=== PATIENT | male | born 1945 | race Caucasian/White ===

== ENCOUNTER 2017-01-13 09:37 | Day surgery (SDC) | payer OTHER, MEDICARE ==
[2017-01-13 09:44] VITALS: BMI 28.1
--- NOTE | 2017-01-13 11:02 | PDOC ---
History of Present Illness <Ham Harmon - Last Filed: 01/13/17 11:09> - General History Source: Patient Exam Limitations: No Limitations - History of Present Illness Initial Comments: 01/13/17 11:16 Patient is a 70 year old male with significant medical hx of HTN, HLD, CAD s/p 3 vessel CABG(on aspirin and effient), cardiac stent x1, RA, hiatal hernia, GERD and chronic lower back pain who is presenting to the ED with foreign body. Patient states that he was taking his daily medication this morning as he accidentally swallowed one of his pill that is still in the terminal manager. He states that he tried inducting vomiting but was not successful. He states that he feels the wrapper in the mid throat. Patient reports pain when swallowing but denies difficulty, SOB or trouble holding saliva. He states that his last effient dose was yesterday. PCP: Tashi Dutta MD ENT - Dr. Pedro MARTE <Bhavani Aranda - Last Filed: 01/13/17 11:29> - General Chief Complaint: Foreign Body (FB) Stated Complaint: FOREIGN BODY/swallowed pill wrapper Time Seen by Provider: 01/13/17 10:13 Past History - Past Medical History Cardiac Disorders: Yes ([place]) HTN: Yes - Surgical History Cardiac Surgery: Yes (BYPASS 1989, CARD STENT) - Psycho/Social/Smoking Cessation Hx Anxiety: No Suicidal Ideation: No Smoking Status: No Smoking History: Former smoker Have you smoked in the past 12 months: No Number of Cigarettes Smoked Daily: 0 If you are a former smoker, when did you quit?: 1977 Information on smoking cessation initiated: No Hx Alcohol Use: No Drug/Substance Use Hx: No Substance Use Type: None <Ham Harmon - Last Filed: 01/13/17 11:09> <Bhavani Aranda - Last Filed: 01/13/17 11:29> - Past Medical History Allergies/Adverse Reactions: Allergies Allergy/AdvReac Type Severity Reaction Status Date / Time No Known Allergies Allergy Verified 01/13/17 09:44 Home Medications: Ambulatory Orders Aspirin Coated [Ecotrin -] 80 mg PO DAILY 01/01/13 Atorvastatin Ca [Lipitor] 20 mg PO HS 01/01/13 Hydroxychloroquine So4 [Plaquenil -] 200 mg PO BID 01/01/13 Lisinopril [Prinivil -] 20 mg PO DAILY 01/01/13 Metoprolol Succinate [Toprol XL -] 100 mg PO BID 01/01/13 Gabapentin [Neurontin -] 600 mg PO HS 12/27/15 Multivitamins [Multivit ([facility])] 1 tab PO DAILY 12/27/15 Prasugrel Hydrochloride [Effient -] 5 mg PO ASDIR 12/27/15 Furosemide [Lasix -] 40 mg PO HS 01/13/17 Spironolactone 25 mg PO DAILY 01/13/17 Sulfasalazine [Sulfazine] 1,500 mg PO BID 01/13/17 Review of Systems - Review of Systems Constitutional: No: Chills, Fever HEENTM: Yes: Difficulty Swallowing. No: Throat Swelling Respiratory: No: Shortness of Breath Cardiac (ROS): No: Syncope ABD/GI: No: Vomiting <Ham Harmon - Last Filed: 01/13/17 11:09> *Physical Exam - Vital Signs Last Vital Signs Temp Pulse Resp BP Pulse Ox 97.7 F 62 19 153/70 99 01/13/17 09:41 01/13/17 09:41 01/13/17 09:41 01/13/17 09:41 01/13/17 09:41 <Ham Harmno - Last Filed: 01/13/17 11:09> - Vital Signs Last Vital Signs Temp Pulse Resp BP Pulse Ox 97.7 F 62 19 153/70 99 01/13/17 09:41 01/13/17 09:41 01/13/17 09:41 01/13/17 09:41 01/13/17 09:41 - Physical Exam Comments: 01/13/17 11:16 GENERAL: The patient is awake, alert, and fully oriented, in no acute distress. HEAD: Normal with no signs of trauma. EYES: Pupils equal, round and reactive to light, extraocular movements intact, sclera anicteric, conjunctiva clear with no pallor. ENT: +patent airway, speaking full sentences. Ears normal, nares patent, oropharynx clear without exudates. Moist mucous membranes. NECK: Normal range of motion, supple without lymphadenopathy, JVD, or masses. No stridor. LUNGS: Breath sounds equal, clear to auscultation bilaterally. No wheeze/ crackles. HEART: Regular rate and rhythm, normal S1 and S2 without murmur or rub. ABDOMEN: Soft/nontender/nondistended. BS wnl. No guarding or rebound. No palpable masses. No hepatosplenomegaly. EXTREMITIES: Normal range of motion, no edema. No clubbing or cyanosis. No cords, erythema, or tenderness. NEUROLOGICAL: Cranial nerves II through XII grossly intact. Normal speech, normal gait. PSYCH: Normal mood, normal affect. SKIN: Warm, Dry, normal turgor, no rashes or lesions noted. <Bhavani Aranda - Last Filed: 01/13/17 11:29> ED Treatment Course - RADIOLOGY Radiology Studies Ordered: Category Date Time Status NECK SOFT TISSUE [RAD] Stat Radiology 01/13/17 10:13 Completed <Ham Harmon - Last Filed: 01/13/17 11:09> - RADIOLOGY Radiology Studies Ordered: 01/13/17 11:17 EXAM#: TYPE/EXAM: RESULT: [id number] RAD/NECK SOFT TISSUE Swallow pill cover. Neck soft tissue technique 3 views. - Linear vertically oriented radiopaque density is noted at the level of C3, C4 in the proximal esophagus represents radiopaque pill wrapping. - No evidence of prevertebral soft tissue swelling. - Patent airways. - Extensive disc space narrowing C4-C5 with facet joint arthropathy, minimal degenerative posterior subluxation of C4 on C5. - The predental space is not widened. Sternal wires are noted. The lung apices are clear. Bilateral apical pleural thickening. Reported By: Tavo Jackson MD 01/13/17 1052 <Bhavani Aranda - Last Filed: 01/13/17 11:29> Medical Decision Making - Medical Decision Making 01/13/17 11:09 71y/o M cardiac history p/w foreign body in his throat. Pt accidentally swallowed his vitamin b pill in the wrapper. Feels sharp discomfort around his cricoid cartilage, painful swallowing but no difficulty swallowing or breathing/speaking. takes asa daily (took dose this AM), takes effient MWF, last dose yesterday. h/o dyspepsia/GERD VSS airway patent, speaking full sentences, no stridor no visualized foreign body in pharynx lungs clear stat soft tissue neck xray performed showing radioopaque FB in the proximal esophagus. GI consulted and case d/w Dr. Bourne, plan for endo suite for removal. Will check pre-op labs given on asa/effient <Ham Harmon - Last Filed: 01/13/17 11:09> - Medical Decision Making 01/13/17 11:29 A call was placed to Dr. Blount at 10:50 AM A call received from Dr. Blount at 10:59 AM <Bhavani Aranda - Last Filed: 01/13/17 11:29> *DC/Admit/Observation/Transfer - Discharge Dispostion Admit: Yes <Ham Harmon - Last Filed: 01/13/17 11:09> - Attestations Scribe Attestion: 01/13/17 11:18 Documentation prepared by BLADE Vera, acting as medical economics consultant for Ham Harmon MD. <Bhavani Aranda - Last Filed: 01/13/17 11:29> Diagnosis at time of Disposition: Foreign body in esophagus Qualifiers: Encounter type: initial encounter Qualified Code(s): T18.108A - Unspecified foreign body in esophagus causing other injury, initial encounter - Discharge Dispostion Condition at time of disposition: Stable - Referrals Referrals: Tashi Dutta MD [Primary Care Provider] -
[2017-01-13 12:02] LABS: BASOPHIL 2.2 % (0-2.0); MCH 32.9 pg (25.7-33.7); MCHC 32.1 g/dl (32.0-35.9); MEAN CELL VOLUME 102.5 fl (80-96); MEAN PLT VOLUME 8.8 fl (7.5-11.1); NEUTROPHILS 56.8 % (42.8-82.8); PLATELET COUNT 146 K/MM3 (134-434); RDW 13.4 % (11.9-15.9); WHITE BLOOD COUNT 7.4 K/mm3 (4.0-10.0)
[2017-01-13 12:26] LABS: INR 1.05 (0.82-1.09); PROTHROMBIN TIME (PATIENT) 11.6 SEC (9.98-11.88)
[2017-01-13 12:28] LABS: ACTIVATED PTT 31.4 SECONDS (26.9-34.4)
[2017-01-13 13:18] VITALS: TEMP 97.8
[2017-01-13 13:25] LABS: GLUCOSE,RANDOM 101 mg/dL (74-106)
[2017-01-13 13:29] LABS: ANION GAP 5 (8-16); CO2 25 mmol/L (21-32); CREATININE 1.6 mg/dL (0.7-1.3)
[2017-01-13 13:30] LABS: ALBUMIN 3.3 g/dl (3.4-5.0); ALK PHOS 101 U/L (45-117); BILIRUBIN,TOTAL 0.3 mg/dL (0.2-1.0); SGOT/AST 26 U/L (15-37); SGPT/ALT 24 U/L (12-78); TOT PROT 6.4 g/dl (6.4-8.2)
[2017-01-13 13:38] VITALS: BP 132/65; PULSE 48
--- NOTE | 2017-01-13 19:12 | CON.GI ---
Consult Consult Specialty:: GASTROENTEROLOGY - History of Present Illness Chief Complaint: Swallow pill wrapper History of Present Illness: 71-year-old male who complains of foreign body in the esophagus neck after accidentally ingesting a foil wrap pill that he thought was his vitamin. He was seen in the emergency room where an x-ray of his neck was performed and a radiopaque linear opacity was seen in the upper esophagus. Patient is able to handle secretions and able to swallow water however he has a sensation of something stuck in the back of his throat. He was examined by the ER physician. There is no bleeding no cough no shortness of breath. 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 MANAGER: No: Alzheimer's, CVA, Dementia, Migraine, Multiple Sclerosis, Peripheral Neuropathy, Parkinson's, Seizure, Syncope, TIA, Vertigo, Other Cardio/Vascular: Yes: Other ( Calcium deposits coronary artery disease on Effient) Pulmonary: No: Asthma, Bronchitis, Cancer, COPD, O2 Dependent, Pneumonia, Previously Intubated, Pulmonary Embolus, Pulmonary Fibrosis, Sleep Apnea, Other Gastrointestinal: No: Ascites, Cancer, Constipation, Crohn's Disease, Diverticulitis, Diverticulosis, Esophageal Varices, Gastritis, GERD, GI Bleed, Hemorrhoids, Hiatal Hernia, Inflamatory Bowel Disease, Irritable Bowel Disease, Pancreatitis, Peptic Ulcer Disease, Ulcerative Colitis, Other Hepatobiliary: No: Cirrhosis, Cholelithiasis, Cholecystitis, Choledocholithiasis , Hepatitis A, Hepatitis B, Hepatitis C, Other Renal/: No: Renal Failure, Renal Inusuff, BPH, Cancer, Hematuria, Hemodialysis , Neurogenic Bladder, Renal Calculi, UTI, Other Heme/Onc: No: Anemia, B12 Deficiency, Bleeding Disorder, Cancer, Current Chemotherapy, Current Radiation Therapy, Hemochromatosis, Hypercoaguable State, Myeloproliferative Synd, Sickle Cell Disease, Sickle Cell Trait, Thrombocytopenia, Other Infectious Disease: No: AIDS, C-Diff, Herpes Zoster, HIV, MRSA, STD's, Tuberculosis, VREF, Other Musculoskeletal: No: Bursitis, Chronic low back pain, Hemiparesis, Hemiplegia, Osteoarthritis, Paraplegia, Other Rheumatology: No: Fibromyalgia, Gout, Lupus, Rheumatoid Arthritis, Sarcoidosis, Vasculitis, Other ENT: No: Allergic Rhinitis, Sinusitis, Other Endocrine: No: Port[place]'s Disease, [place]'s Disease, Diabetes Insipidus, Diabetes Mellitus, Hyperparathyroidism, Hyperthyroidism, Hypothyroidism, Osteopenia, SIADH, Other Additional Medical History: 1. RHEUMATOID ARTHRITIS (DIFFUSE SYMMETRICAL). 2. CELIAC DISEASE. 3. H/O DERMATITIS HERPETIFORMIS. 4. CAD S/P-LAD STENT RESTENOSIS FOLLOWED BY CABG. 5. HTN. 6. HLD. 7. SEVERE GERD. 8. LUNG GRANULOMAS. 9. 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 10. FORMER SMOKER. 11. THYROID NODULE S/P PARTIAL THYROIDECTOMY. 12. B/L CATARACT SURGERIES WITH LENS IMPLANTS. 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 14. 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 History of Recent Travel: No Home Medications - Allergies Allergies/Adverse Reactions: Allergies Allergy/AdvReac Type Severity Reaction Status Date / Time No Known Allergies Allergy Verified 01/13/17 09:44 - Home Medications Home Medications: Ambulatory Orders Aspirin Coated [Ecotrin -] 80 mg PO DAILY 01/01/13 Atorvastatin Ca [Lipitor] 20 mg PO HS 01/01/13 Hydroxychloroquine So4 [Plaquenil -] 200 mg PO BID 01/01/13 Lisinopril [Prinivil -] 20 mg PO DAILY 01/01/13 Metoprolol Succinate [Toprol XL -] 100 mg PO BID 01/01/13 Gabapentin [Neurontin -] 600 mg PO HS 12/27/15 Multivitamins [Multivit ([facility] Formul[facility])] 1 tab PO DAILY 12/27/15 Prasugrel Hydrochloride [Effient -] 5 mg PO ASDIR 12/27/15 Furosemide [Lasix -] 40 mg PO HS 01/13/17 Spironolactone 25 mg PO DAILY 01/13/17 Sulfasalazine [Sulfazine] 1,500 mg PO BID 01/13/17 Family Disease History - Family Disease History Family History: Unremarkable Review of Systems - Review of Systems Constitutional: reports: No Symptoms Eyes: reports: No Symptoms HENT: reports: Difficult Swallowing, Throat Pain Neck: reports: No Symptoms Cardiovascular: reports: No Symptoms Respiratory: reports: No Symptoms Gastrointestinal: reports: Other ( as HPI) Genitourinary: reports: No Symptoms Breasts: reports: No Symptoms Reported Musculoskeletal: reports: No Symptoms Integumentary: reports: No Symptoms Neurological: reports: No Symptoms Endocrine: reports: No Symptoms Hematology/Lymphatic: reports: No Symptoms Psychiatric: reports: No Symptoms Physical Exam-GI Vital Signs: Vital Signs Temperature 97.8 F 01/13/17 12:34 Pulse Rate 48 L 01/13/17 13:37 Respiratory Rate 17 01/13/17 13:37 Blood Pressure 132/65 01/13/17 13:37 O2 Sat by Pulse Oximetry (%) 97 01/13/17 13:37 Constitutional: Yes: Well Nourished Eyes: Yes: Conjunctiva Clear HENT: Yes: Atraumatic Neck: Yes: Supple, Trachea Midline Cardiovascular: Yes: Regular Rate and Rhythm Respiratory: Yes: Regular Gastrointestinal Inspection: Yes: WNL ...Auscultate: Yes: Normoactive Bowel Sounds ...Palpate: Yes: Soft Musculoskeletal: Yes: WNL Neurological: Yes: WNL, Alert, Oriented Labs: CBC, BMP 01/13/17 11:46 01/13/17 11:46 INR, PTT INR 1.05 (0.82-1.09) 01/13/17 11:46 Imaging - Results X-ray: Image Reviewed Problem List - Problems (1) Foreign body in esophagus Assessment/Plan: Patient needs requires urgent endoscopy. I discussed the risk and benefits of the procedure and the patient agrees to having the event procedure performed. The risk of the procedure include bleeding perforation need for surgical intervention extra hospital stay which may include intensive care stay. We have called endoscopy unit for emergent endoscopy anesthesia is aware and waiting for the patient. Patient understands that he will need to be intubated to perform the endoscopy. Patient also understands the dose higher risk for bleeding because of his anticoagulation. Please see future endoscopy report for results. Davy Bourne MD Code(s): T18.108A - UNSP FOREIGN BODY IN ESOPHAGUS CAUSING OTH INJURY, INIT Qualifiers: Encounter type: initial encounter Qualified Code(s): T18.108A - Unspecified foreign body in esophagus causing other injury, initial encounter
--- NOTE | 2017-01-14 16:01 | PATH ---
Surgical Pathology Report Patient Name: ADAM BELCHER Med. Rec. #: [id number] /Age/Gender: 1945 (Age: 71) / M Account: [id number] Location: AMBULATORY SURG Taken: 01/13/2017 Received: 01/13/2017 Reported: 01/14/2017 Physicians: Davy Bourne M.D. Specimen(s) Received FOREIGN BODY Clinical History Food impaction Final Diagnosis PHARYNGEAL FOREIGN BODY, REMOVAL: FOREIGN BODY (GROSS EXAM). Electronically Signed Dominic Oconnor M.D. Gross Description Received fresh, labeled with the patient's name and indicated on the requisition to be a foreign body, is a 2.1 x 1.6 x 0.3 cm means metallic pill tab. No soft tissue is present. No sections are submitted, gross only. /01/13/2017 saudi/01/13/2017
== END 2017-01-13 13:40 | disposition home or self-care (01) ==
LOC: JER 09:37 → JERFT 09:37 → JASUSAT 11:14
PROVIDERS: ATTEND Internal Medicine Gastroenterology
PROC: 0DC58ZZ Extirpation of Matter from Esophagus, Via Natural or Artificial Opening Endoscopic (ICD-10-PCS; principal; 2017-01-13 12:00)
DX: T17.298A Other foreign object in pharynx causing other injury, initial encounter (principal); X58.XXXA Exposure to other specified factors, initial encounter; Y93.9 Activity, unspecified; Y92.9 Unspecified place or not applicable; Y99.9 Unspecified external cause status
CPT/HCPCS: 36415; 70360-TC; 80053; 85025; 85610; 85730; 86850; 86900; 86901; 88300-TC; 99284-25

== ENCOUNTER 2017-12-03 16:51 | Observation (INO) | payer OTHER, MEDICARE ==
--- NOTE | 2017-12-03 17:01 | PDOC ---
Rapid Medical Evaluation Time Seen by Provider: 12/03/17 16:57 Medical Evaluation: Allergies Allergy/AdvReac Type Severity Reaction Status Date / Time No Known Allergies Allergy Verified 01/13/17 09:44 I have performed a brief in-person evaluation of this patient. The patient presents with a chief complaint of: Headache, lightheadedness, SOB today. BP went up to 211 today Pertinent physical exam findings: 176/102 BP. I have ordered the following: Ekg, labs, CXR The patient will proceed to the ED for further evaluation. Discharge Disposition - Diagnosis Headache, Hypertension, Lightheaded - Referrals - Patient Instructions - Post Discharge Activity
[2017-12-03 17:42] LABS: BASO % 1.8 % (0-2.0); EOS % 3.9 % (0-4.5); HEMATOCRIT 37.4 % (35.4-49); HEMOGLOBIN 12.4 GM/dL (11.7-16.9); LYMPH % 18.1 % (8-40); MCHC 33.2 g/dl (32.0-35.9); MEAN CELL VOLUME 96.5 fl (80-96); MEAN PLT VOLUME 8.8 fl (7.5-11.1); MONO % 5.5 % (3.8-10.2); NEUT % 70.7 % (42.8-82.8); PLATELET COUNT 196 K/MM3 (134-434); RBC 3.88 M/mm3 (4.00-5.60); RDW 13.8 % (11.9-15.9); WHITE BLOOD COUNT 7.3 K/mm3 (4.0-10.0)
[2017-12-03 18:00] LABS: ALBUMIN 3.9 g/dl (3.4-5.0); ANION GAP 7 (8-16); BLOOD UREA NITROGEN 19 mg/dL (7-18); CALCIUM 9.3 mg/dL (8.5-10.1); CHLORIDE 107 mmol/L (98-107); CO2 28 mmol/L (21-32); CREATININE 1.2 mg/dL (0.7-1.3); GLUCOSE,RANDOM 94 mg/dL (74-106); POTASSIUM 4.2 mmol/L (3.5-5.1); SGOT/AST 29 U/L (15-37); SGPT/ALT 35 U/L (12-78); SODIUM 142 mmol/L (136-145)
[2017-12-03 18:04] LABS: ALK PHOS 87 U/L (45-117); BILIRUBIN,TOTAL 0.4 mg/dL (0.2-1.0); N-TERMINAL BNP 676.26 pg/ml (5-125); TOT PROT 7.1 g/dl (6.4-8.2)
[2017-12-03] MEDS ORDERED: FUROSEMIDE 40 MG/4 ML INJECTABLE VIAL IVPUSH ONE (18:55)
--- NOTE | 2017-12-03 19:28 | PDOC ---
History of Present Illness - General Chief Complaint: Blood Pressure Problem Stated Complaint: BLOOD PRESSURE Time Seen by Provider: 12/03/17 16:57 History Source: Patient Exam Limitations: No Limitations - History of Present Illness Initial Comments: Pt, with PMH of HTN, HLD, CAD with 3 vessel CABG (1998) after inferior STEMI and stent x1 (2013), and spinal stenosis, presents with light-headedness, HTN, and SOB since this morning. The pt states he awoke this morning and felt short of breath and light-headed. He took his vitals at home with his monitor and his BP was 200s/100s and O2 saturation was 88%. He called his PCP and guideman office but they are both on vacation. He is able to sleep flat at night and usually does not awake with SOB, although he does have baseline LE edema and has been coughing up more clear sputum. He states he has been more sedentary over the past few months and feels that he has "put on a lot of weight around his abdomen". He denies syncope, changes to his vision, fevers/chills, nausea/ vomiting, chest pain, abdominal pain, urinary symptoms, diarrhea, or constipation. He has taken 40 mg lasix in the past, but it was stopped due to hypokalemia. He takes aspirin and effient since the cardiac stenting, and he took 325 mg aspirin before he arrived to the ER. He was recently treated by a nuclear test technician for a hematoma removal in his R thigh. He believes they have done a RLE doppler on that extremity before, and they had prescribed chlorthiadone for lower extremity edema. 12/03/17 22:19 Past History - Travel Traveled outside of the country in the last 30 days: No Close contact w/someone who was outside of country & ill: No - Past Medical History Allergies/Adverse Reactions: Allergies Allergy/AdvReac Type Severity Reaction Status Date / Time No Known Allergies Allergy Verified 12/03/17 16:58 Home Medications: Ambulatory Orders Amlodipine Besylate [Norvasc -] 5 mg PO DAILY 12/03/17 Aspirin 81 mg PO DAILY 12/03/17 Atorvastatin Ca [Lipitor] 20 mg PO HS 12/03/17 Chlorthalidone 25 mg PO ASDIR 12/03/17 Folic Acid 1 mg PO DAILY 12/03/17 Gabapentin [Neurontin] 300 mg PO TID 12/03/17 Hydroxychloroquine Sulfate [Plaquenil] 200 mg PO BID 12/03/17 Metoprolol Tartrate [Lopressor] 100 mg PO BID 12/03/17 Oxycodone HCl 10 mg PO PRN 12/03/17 Prasugrel HCl [Effient] 5 mg PO ASDIR 12/03/17 Sulfasalazine [Azulfidine] 1,500 mg PO BID 12/03/17 Cancer: No Cardiac Disorders: Yes (OR) Hx Myocardial Infarction: Yes COPD: No DVT: Yes (MELISSA, 2013) Diabetes: No Dialysis: No HTN: Yes Hypercholesterolemia: Yes Liver Disease: No - Surgical History Cardiac Surgery: Yes (BYPASS 1988, CARD STENT) - Immunization History Immunization Up to Date: Yes - Suicide/Smoking/Psychosocial Hx Smoking Status: No Smoking History: Former smoker Have you smoked in the past 12 months: No Number of Cigarettes Smoked Daily: 0 If you are a former smoker, when did you quit?: 1977 Information on smoking cessation initiated: No Hx Alcohol Use: No Drug/Substance Use Hx: No Substance Use Type: None Review of Systems - Review of Systems Able to Perform ROS?: Yes Is the patient limited Korean proficient: No Constitutional: No: Chills, Diaphoresis, Fever, Loss of Appetite, Weight Stable (gaining weight, has been more sedentary and feels more abdominal distension) HEENTM: No: Blurred Vision, Recent change in vision, Double Vision Respiratory: Yes: Shortness of Breath, SOB with Exertion, SOB at Rest, Wheezing (more wheezing at night ), Productive cough (increased clear sputum production) . No: Symptoms reported, Cough, Orthopnea Cardiac (ROS): Yes: Edema, Irregular Heart Rate (felt like heart was racing ), Lightheadedness, Palpitations. No: Chest Pain, Syncope, Chest Tightness ABD/GI: Yes: Abdominal Distended. No: Constipated, Diarrhea, Difficulty Swallowing, Nausea, Poor Appetite, Poor Fluid Intake, Vomiting, Indigestion : No: Burning, Dysuria, Frequency, Hematuria, Urgency Musculoskeletal: No: Back Pain, Joint Pain, Muscle Weakness Integumentary: No: Change in Color, Rash, Sweating Neurological: No: Headache, Numbness, Paresthesia, Seizure, Weakness, Unsteady Gait, Ataxia, Dizziness Psychiatric: No: Stressors, Sleep Pattern Change, Change in Appetite Endocrine: No: Excessive Sweating, Increased Urine, Change in Weight Hematologic/Lymphatic: Yes: Blood Clots (past RUE DVT). No: Anemia, Easy Bleeding, Easy Bruising All Other Systems: Reviewed and Negative *Physical Exam - Vital Signs Last Vital Signs Temp Pulse Resp BP Pulse Ox 98.2 F 86 16 176/102 96 12/03/17 16:59 12/03/17 16:59 12/03/17 16:59 12/03/17 16:59 12/03/17 16:59 - Physical Exam General Appearance: Yes: Nourished, Appropriately Dressed. No: Apparent Distress (Pt stable in department, no current SOB. HTN (170s/90s), sat 96-98%. Pt able to ambulate to stretcher.) HEENT: positive: EOMI, EVELIA, Normal ENT Inspection, Normal Voice, Symmetrical, Pharynx Normal, Hearing Grossly Normal. negative: Scleral Icterus (R), Scleral Icterus (L), Tonsillar Exudate, Tonsillar Erythema Neck: positive: Trachea midline, Normal Thyroid, Supple. negative: Tender, Rigid, Lymphadenopathy (R), Lymphadenopathy (L) Respiratory/Chest: positive: Decreased Breath Sounds (R anterior and posterior mendoza). negative: Chest Tender, Lungs Clear, Normal Breath Sounds, Respiratory Distress, Accessory Muscle Use, Crackles, Rales Cardiovascular: positive: Regular Rhythm, Regular Rate, S1, S2, Edema (pitting edema up to mid jackman, RLE>LLE). negative: JVD, Murmur, Tachycardia Vascular Pulses: Carotid (R): 4+, Carotid (L): 4+ Gastrointestinal/Abdominal: positive: Normal Bowel Sounds, Flat, Soft. negative : Tender, Organomegaly, Pulsatile Mass, Guarding, Rebound, Tenderness Rectal Exam: positive: deferred Lymphatic: negative: Adenopathy, Tenderness Musculoskeletal: positive: Normal Inspection. negative: CVA Tenderness, Decreased Range of Motion, Vertebral Tenderness Extremity: positive: Normal Capillary Refill, Normal Range of Motion, Pelvis Stable, Pedal Edema (pitting edema with keratosis. Recent incision site over R thigh from hematoma removal. ), Swelling. negative: Normal Inspection, Tender, Calf Tenderness, Inflammation Integumentary: positive: Normal Color, Dry, Warm, Swelling (lower extremity edema). negative: Cyanotic, Rash Neurologic: positive: chief investigator II-XII NML intact, Fully Oriented, Alert, Normal Mood/ Affect, Normal Response, Motor Strength 5/5 Heart Score/ECG Review - History History: Moderately suspicious (SOB, no chest pain. Extensive cardiac history with CABG and stent. On aspirin and effient.) - Electrocardiogram EKG: Normal (Similar to prior ECG (old inferior OR)) - Age Age: >/= 65 - Risk Factors Risk Factors Heart Score: Yes Hx Hypercholesterolemia, Yes Hx Hypertension Based on the list above the patient has:: 1-2 risk factors - Troponin Troponin: </= normal limit - Score Heart Score - Total: 4 - ECG Intrepretation Rhythm: Regular Rhythm - [place]: Normal - P and NV Prominent R with upright T in V1 (true posterior OR): No Delta Wave(s) Present: No WPW: No - QRS Poor R Wave Progression: No Q Wave Present: No - ST and T Early Repolarization: No Non Specific ST-T Wave changes: No Flattened T Waves: No Prolonged Q-T Interval: No - ECG Impressions Normal ECG: Yes Non-specific ST Elevation: No Ischemic Changes: No (old inferior OR, no acute changes compared to prior) Bradycardia: No Torsades die[place] Pointes: No WPW: No ED Treatment Course - LABORATORY CBC & Chemistry Diagram: 12/03/17 17:17 12/03/17 17:17 - ADDITIONAL ORDERS Additional order review: Laboratory Results 12/03/17 17:17 Sodium 142 Potassium 4.2 Chloride 107 Carbon Dioxide 28 Anion Gap 7 L BUN 19 H Creatinine 1.2 Creat Clearance w eGFR 59.18 Random Glucose 94 Calcium 9.3 Total Bilirubin 0.4 AST 29 ALT 35 D Alkaline Phosphatase 87 Creatine Kinase 182 Creatine Kinase Index 1.3 CK-MB (CK-2) 2.43 Troponin I < 0.02 B-Natriuretic Peptide 676.26 H Total Protein 7.1 Albumin 3.9 12/03/17 17:17 RBC 3.88 L MCV 96.5 H MCHC 33.2 RDW 13.8 MPV 8.8 Neutrophils % 70.7 D Lymphocytes % 18.1 Monocytes % 5.5 Eosinophils % 3.9 Basophils % 1.8 - RADIOLOGY Radiology Studies Ordered: Category Date Time Status DUPLEX VASCUL US-1 LEG [US] Stat Ultrasound 12/03/17 18:59 Ordered Medical Decision Making - Medical Decision Making (entered later) pt was seen at bedside. Also seen by Dr. Mendiola. Pt presenting with SOB and HTN at home (200s/100s, sat 88%). Pt stable in department (170s/90s, sat 96-98% pt baseline). Calling guideman office as pt was taken off Lasix previously due to hypokalemia. Pt has RLE edema > LLE edema and decreased breath sounds on R side anterior and posterior. Pt took 325 mg Terry aspirin before arriving. ECG looked similar to prior (old inferior stemi). Considering CHF exacerbation vs PE vs ACS. Spoke with his [facility] office (Dr. Morgan, who was international account manager). Agreed with plan for RLE US and 40 IV Lasix. Suggested adding Mg with K to avoid hypokalemia. Will let admitting team know once he is admitted to tele/obs. Ordering D/dimer and RLE ultrasound to r/o DVT/PE. 12/03/17 19:23 Troponin negative, no elevated WBC. Sending coags and D-dimer. If D-dimer positive will obtain CTA to r/o PE. Pt comfortable at bedside. Taken to US for RLE doppler. Called admitting team and he will be admitted to tele/observation with Dr. Lozano. 12/03/17 20:03 Coags within normal limits. Awaiting results of RLE doppler and D-dimer. Called lab to ask for d-dimer report. Lab will call back. Awaiting admitting team to visit patient. Provided home medications as pt was complaining of pain in his back (spinal stenosis) and peripheral neuropathy. Provided 300 mg gabapentin PO, 10 mg oxycodone PO, and 650 mg Tylenol PO. Asked pt to use urinal or to ask overhead door technician for help if he needs to use the restroom (as we provided both Lasix and oxycodone). Pt refused to use urinal. 12/03/17 22:16 (entered later). Pt resting comfortably after lasix and home medications. Was seen by hospitalist and has since left department. D-dimer (called by lab) was 573, which is within age adjusted limits for pt (< 740). No CTA. 12/04/17 01:27 *DC/Admit/Observation/Transfer Diagnosis at time of Disposition: Shortness of breath Hypertension Qualifiers: Hypertension type: unspecified Qualified Code(s): I10 - Essential (primary) hypertension - Discharge Dispostion Condition at time of disposition: Improved Decision to Admit order: Yes - Referrals - Patient Instructions - Post Discharge Activity
--- NOTE | 2017-12-03 19:54 | PDOC ---
Attending Attestation - Resident Resident Name: Tara Boland - ED Attending Attestation I have performed the following: I have examined & evaluated the patient, The case was reviewed & discussed with the resident, I agree w/resident's findings & plan, Exceptions are as noted - HPI HPI: 12/03/17 23:22 Mr. Frantz Reid is a 72 year old male with past medical history of RA ( diffuse symmetrical), Celiac disease, Dermatitis Herpetiformis, CAD s/p LAD stent restenosis followed by 3 vessel CABG (on aspirin and effient), HTN, HLD, GERD, Lung granulomas, B/l cataract surgeries with lens implants and PVD presents to the emergency department with shortness of breath and elevated blood pressure reading at home. The patient reports he woke up today with shortness of breath accompanied with headache and elevated blood pressure of 170 /90, denies chest pain. The patient reports being compliant with all his medications today. Denies nausea or vomiting. The patient reports he had a cardiac stress test on 11/30/2017, which showed an ejection fraction of 53. Allergies: NKDA. PCP: Tashi Dutta MD ENT - Dr. Vasquez - Physicial Exam PE: 12/03/17 23:22 as documented by resident and agree, vital signs reviewed and wnl - Medical Decision Making 12/03/17 19:53 A portion of this note was documented by scribe services under my direction. I have reviewed the details of the note, within reason, and agree with the documentation with the following case summary and management plan written by me. MDM: Jeanette 72 YOM with h/o HTN, HLD, CAD s/p 3 vessel CABG(on aspirin and effient), cardiac stent x1, RA, hiatal hernia, GERD and chronic lower back pain presenting with shortness of breath, hypoxia to 88% and hypertensive at home today. Vital signs wnl here, SpO2 >95% on RA. CXR with mild pulmonary vascular congestion. Trop negative, EKG with old infarct in inferior lead, no elevations or ST segment or interval derangements. Lytes and CBC wnl. BNP in indeterminate range ~670s, similar to prior. Will diurese lasix 40mg x1. Suspecting new onset CHF, will need further cards obs, tele and workup for symptom given cardiac comorbidities. also plan for Duplex study r/o DVT, D dimer to r/o PE, will age adjust and determine if further imaging is necessary. Spoke with his town marshal office (Dr. Morgan, who was medical collections representative). Agreed with plan for RLE US and 40 IV Lasix. Suggested adding Mg with K to avoid hypokalemia. will admit for tele obs for dyspnea/cp workup, concern for new onset CHF, no echo report in notes and inpatient team will need to obtain recent echo report. EF 53%. Admit to hospitalist for medical management, cards hannah tele obs. 12/03/17 23:22
[2017-12-03 20:20] LABS: URINE APPEARANCE CLEAR; URINE BILIRUBIN NEGATIVE (<2.0 mg/dL); URINE COLOR YELLOW; URINE GLUCOSE (UA) NEGATIVE (NEGATIVE); URINE KETONE NEGATIVE (NEGATIVE); URINE LEUK ESTERASE NEGATIVE (NEGATIVE); URINE NITRITE NEGATIVE (NEGATIVE); URINE PROTEIN NEGATIVE (NEGATIVE); URINE UROBILINOGEN NEGATIVE mg/dL (0.2-1.0)
[2017-12-03 20:54] LABS: INR 1.02 (0.83-1.09); PROTHROMBIN TIME (PATIENT) 11.5 SEC (9.7-13.0)
[2017-12-03] MEDS ORDERED: FUROSEMIDE 40 MG/4 ML INJECTABLE VIAL ONE (21:01)
[2017-12-03] MEDS ORDERED: oxyCODONE HCL 5 MG TABLET PO ONE (21:28)
[2017-12-03] MEDS ORDERED: ACETAMINOPHEN 325 MG TABLET (FP) PO ONE (21:28)
[2017-12-03] MEDS ORDERED: GABAPENTIN 300 MG CAPSULE (FP) PO ONE (21:28)
[2017-12-03] MEDS ORDERED: GABAPENTIN 100 MG CAPSULE (FP) ONE (22:43)
--- NOTE | 2017-12-03 22:53 | HP ---
CHIEF COMPLAINT: elevated BP, lightheaded, headache PCP: Tra HISTORY OF PRESENT ILLNESS: This is a 72 year old male with a past medical history of [place], CAD s/p CABG, stent, HTN, HLD who presented to the ED with elevated BP and lightheadedness and a bandlike pressure across his forehead as well as SOB. He also reports his B/L LE edema is increased from baseling. At home his BP was 211/119 and his ox sat was 88. ER course was notable for: (1) troponin 0.02 (2) BNP 676 (3) Recent Travel: pt denies PAST MEDICAL HISTORY: HTN, HLD, [place] 1997, RA, celiac disease, dermatitis herpetiforms, GERD, lung granulomas PAST SURGICAL HISTORY: cardiac stent 1997, stenosed 3vCABG 1998 stent bypass artery 2013 partial tyhyroidectomy B/L cataract L4-S1 laminectomy and fusion Social History: Smoking: quit 1977 Alcohol: pt denies Drugs: pt denies Family History: mother age 49, "too many benzos" father age 62, [place] pat GF "young" [place] brother with psychiatric problems Allergies No Known Allergies Allergy (Verified 12/03/17 16:58) HOME MEDICATIONS: 3 Medication Instructions Recorded Amlodipine Besylate [Norvasc -] 5 mg PO DAILY 12/03/17 Aspirin 81 mg PO DAILY 12/03/17 Atorvastatin Ca [Lipitor] 20 mg PO HS 12/03/17 Chlorthalidone 25 mg PO ASDIR 12/03/17 Folic Acid 1 mg PO DAILY 12/03/17 Gabapentin [Neurontin] 300 mg PO TID 12/03/17 Hydroxychloroquine Sulfate 200 mg PO BID 12/03/17 [Plaquenil] Metoprolol Tartrate [Lopressor] 100 mg PO BID 12/03/17 Oxycodone HCl 10 mg PO PRN 12/03/17 Prasugrel HCl [Effient] 5 mg PO ASDIR 12/03/17 Sulfasalazine [Azulfidine] 1,500 mg PO BID 12/03/17 REVIEW OF SYSTEMS CONSTITUTIONAL: Absent: fever, chills, diaphoresis, generalized weakness, malaise, loss of appetite, weight change HEENT: Absent: rhinorrhea, nasal congestion, throat pain, throat swelling, difficulty swallowing, mouth swelling, ear pain, eye pain, visual changes CARDIOVASCULAR: Present: lightheadedness, peripheral edema Absent: chest pain, syncope, palpitations, irregular heart rate, RESPIRATORY: Present: shortness of breath Absent: cough, dyspnea with exertion, orthopnea, wheezing, stridor, hemoptysis GASTROINTESTINAL: Absent: abdominal pain, abdominal distension, nausea, vomiting, diarrhea, constipation, melena, hematochezia GENITOURINARY: Absent: dysuria, frequency, urgency, hesitancy, hematuria, flank pain, genital pain MUSCULOSKELETAL: Absent: myalgia, arthralgia, joint swelling, back pain, neck pain SKIN: Absent: rash, itching, pallor HEMATOLOGIC/IMMUNOLOGIC: Absent: easy bleeding, easy bruising, lymphadenopathy, frequent infections ENDOCRINE: Absent: unexplained weight gain, unexplained weight loss, heat intolerance, cold intolerance NEUROLOGIC: Present: headache Absent: focal weakness or paresthesias, dizziness, unsteady gait, seizure, mental status changes, bladder or bowel incontinence PSYCHIATRIC: Absent: anxiety, depression, suicidal or homicidal ideation, hallucinations. PHYSICAL EXAMINATION Vital Signs - 24 hr 3 12/03/17 16:59 Temperature 98.2 F Pulse Rate 86 Respiratory 16 Rate Blood Pressure 176/102 O2 Sat by Pulse 96 Oximetry (%) GENERAL: Awake, alert, and fully oriented, in no acute distress. HEAD: Normal with no signs of trauma. EYES: Pupils equal, round and reactive to light, extraocular movements intact, sclera anicteric, conjunctiva clear. No lid lag. EARS, NOSE, THROAT: Ears normal, nares patent, oropharynx clear without exudates. Moist mucous membranes. NECK: Normal range of motion, supple without lymphadenopathy, JVD, or masses. LUNGS: Breath sounds equal, clear to auscultation bilaterally. No wheezes, and no crackles. No accessory muscle use. HEART: Regular rate and rhythm, normal S1 and S2 without murmur, rub or gallop. ABDOMEN: Soft, nontender, not distended, normoactive bowel sounds, no guarding, no rebound, no masses. No hepatomegaly or splenomegaly. MUSCULOSKELETAL: Normal range of motion at all joints. No bony deformities or tenderness. No CVA tenderness. UPPER EXTREMITIES: 2+ pulses, warm, well-perfused. No cyanosis. No clubbing. No peripheral edema. LOWER EXTREMITIES: 2+ pulses, warm, well-perfused. No calf tenderness. 1+ LLE, 2 + RLE peripheral edema. NEUROLOGICAL: Cranial nerves II-XII intact. Normal speech. Normal gait. PSYCHIATRIC: Cooperative. Good eye contact. Appropriate mood and affect. SKIN: Warm, dry, normal turgor, no rashes or lesions noted, normal capillary refill. Laboratory Results - last 24 hr 3 12/03/17 12/03/17 12/03/17 12/03/17 17:17 17:17 19:41 19:45 WBC 7.3 RBC 3.88 L Hgb 12.4 Hct 37.4 D MCV 96.5 H MCH 32.0 MCHC 33.2 RDW 13.8 Plt Count 196 D MPV 8.8 Absolute Neuts (auto) 5.1 Neutrophils % 70.7 D Lymphocytes % 18.1 Monocytes % 5.5 Eosinophils % 3.9 Basophils % 1.8 Nucleated RBC % 0 PT with INR 11.50 INR 1.02 PTT (Actin FS) 31.0 Sodium 142 Potassium 4.2 Chloride 107 Carbon Dioxide 28 Anion Gap 7 L BUN 19 H Creatinine 1.2 Creat Clearance w eGFR 59.18 Random Glucose 94 Calcium 9.3 Total Bilirubin 0.4 AST 29 ALT 35 D Alkaline Phosphatase 87 Creatine Kinase 182 Creatine Kinase Index 1.3 CK-MB (CK-2) 2.43 Troponin I < 0.02 B-Natriuretic Peptide 676.26 H Total Protein 7.1 Albumin 3.9 Urine Color Yellow Urine Appearance Clear Urine pH 5.0 Ur Specific [place] 1.013 Urine Protein Negative Urine Glucose (UA) Negative Urine Ketones Negative Urine Blood Negative Urine Nitrite Negative Urine Bilirubin Negative Urine Urobilinogen Negative Ur Leukocyte Esterase Negative ECG normal sinus rhythm vent rate 84, QTC 453 minimal voltage criteria for LVH inferior infarct, age undetermined no acute ST/T wave changes Radiology Reports US venous doppler RLE Impression: No DVT is identified involving the right leg. Please see above. Reported By: Jax Luke MD 12/03/17 7669 Chest-portable A single view the chest reveals clear lungs, prominent mediastinum and sternal sutures with clips. An acute chest process is not seen. The bones and soft tissues are intact. Since 12/27/2015, the lungs are better aerated. The bibasilar changes have resolved. Reported By: Galo Candelaria MD 12/03/171958 ASSESSMENT/PLAN: 72yM with PMH HTN, HLD, [place] 1997, RA, celiac disease, dermatitis herpetiforms, GERD, lung granulomas presented to the ED with elevated BP, lightheadedness, sob , headache. SOB/CHF - BNP slightly elevated - troponin 0.02 will cont to trend - admit to tele - received lasix 40mg in ED - echo ordered - cardiology consult Hypertension/CAD - BP improved s/p lasix 40mg in ed - headache now resolved with reduction in bp - cont home meds leg edema/lymphedema - pt reports his edema was diagnosed as lymphedema - no DVT on sono - cont lasix, monitor K, pt reports h/o hypokalemia with lasix in past Hyperlipidemia - cont home meds RA - cont home meds celiac disease - gluten free diet DVT PPX - heparin deferred, anticipated LOS less than 48h FEN - po fluids - bmp in am - gluten free low sodium diet Dispo: pt currently requires further observation. Visit type - Emergency Visit Emergency Visit: Yes ED Registration Date: 12/03/17 Care time: The patient presented to the Emergency Department on the above date and was hospitalized for further evaluation of their emergent condition. - New Patient This patient is new to me today: Yes Date on this admission: 12/03/17 - Critical Care Critical Care patient: No Hospitalist Screening - Colonoscopy Questionnaire Colonoscopy Questionnaire: Colonoscopy Questionnaire - Patient: 50 - 75 years old and never had a screening colonoscopy: No History of colon or rectal polyps, or CA: No History of IBD, Crohn's disease or UC: No History of abdominal radiation therapy as a child: No - Relative: 1 with colon or rectal CA, or polyps at age 60 or younger: Unknown Colon or rectal CA diagnosed at age 45 or younger: Unknown Multiple relatives with colon or rectal CA: Unknown - Outcome: Screening Result: Negative Screen
[2017-12-04 00:20] VITALS: BMI 31.8
[2017-12-04] MEDS: oxyCODONE HCL 5 MG TABLET PO PRN ×2 (05:36→22:08)
[2017-12-04] MEDS: GABAPENTIN 300 MG CAPSULE (FP) PO SCH ×3 (05:36→21:15)
[2017-12-04 06:36] LABS: BASO % 1.8 % (0-2.0); EOS % 4.6 % (0-4.5); HEMATOCRIT 36.9 % (35.4-49); HEMOGLOBIN 12.6 GM/dL (11.7-16.9); LYMPH % 28.8 % (8-40); MCH 32.4 pg (25.7-33.7); MEAN CELL VOLUME 95.1 fl (80-96); MEAN PLT VOLUME 8.6 fl (7.5-11.1); MONO % 9.1 % (3.8-10.2); NEUT % 55.7 % (42.8-82.8); PLATELET COUNT 166 K/MM3 (134-434); RBC 3.88 M/mm3 (4.00-5.60); RDW 13.5 % (11.9-15.9); WHITE BLOOD COUNT 6.7 K/mm3 (4.0-10.0)
[2017-12-04 07:03] LABS: ANION GAP 8 (8-16); BLOOD UREA NITROGEN 18 mg/dL (7-18); CALCIUM 9.8 mg/dL (8.5-10.1); CHLORIDE 101 mmol/L (98-107); CO2 31 mmol/L (21-32); CREATININE 1.2 mg/dL (0.7-1.3); GLUCOSE,RANDOM 95 mg/dL (74-106); MAGNESIUM 1.9 mg/dL (1.8-2.4); POTASSIUM 4.5 mmol/L (3.5-5.1); SODIUM 140 mmol/L (136-145)
[2017-12-04] MEDS ORDERED: PT OWN MED DRAWER 7, Y5N ONE ×3 (09:02→21:05)
[2017-12-04] MEDS: ASPIRIN 81 MG CHEWABLE TABLETS PO SCH (09:43)
[2017-12-04] MEDS: HYDROXYCHLOROQUINE SO4 200 MG TABLET (FP) PO SCH ×2 (09:44→22:07)
[2017-12-04] MEDS: FOLIC ACID 1 MG TABLET (FP) PO SCH (09:44)
[2017-12-04] MEDS: METOPROLOL TARTRATE 50 MG TABLET (FP) PO SCH ×2 (09:45→21:15)
[2017-12-04] MEDS: amLODIPine BESYLATE 5 MG TABLET (FP) PO SCH (09:45)
[2017-12-04] MEDS: sulfaSALAzine 500 MG TABLET PO SCH ×2 (09:45→21:15)
[2017-12-04] MEDS ORDERED: PRASUGREL HCL 5 MG TAB PO SCH (10:00)
[2017-12-04] MEDS ORDERED: CHLORTHALIDONE 25 MG TABLET PO SCH (10:00)
[2017-12-04] MEDS ORDERED: FUROSEMIDE 40 MG/4 ML INJECTABLE VIAL IVPUSH SCH (10:00)
--- NOTE | 2017-12-04 12:20 | CON.CARD ---
Cardiology Consult (text) - Consultation Consultation Note: cc: sob, headache hpi: 72 m hx htn, cad s/p mi/remote cabg/pci 2013, hld, venous insuff/le edema here with elevated bp/sob/headache. Feeling well until last night. He ate [employer] take out and after started to have headache and mild sob. He checked bp at home and sbp 200s so came to ER. Bp elevated in er initially, now better. SOB/headache better now as well. No cp, palps, dizzy loc pnd orthopnea. Chronic le edema about the same. Sees dr adam carreon at [facility] for cardio. pmh: per hpi psh: cabg social: no tob fam: nc ros: per hpi; no nvd fever cough wt loss gib hematuria dysuria muscel pain meds: Home Medications Medication Instructions Recorded Amlodipine Besylate [Norvasc -] 5 mg PO DAILY 12/03/17 Aspirin 81 mg PO DAILY 12/03/17 Atorvastatin Ca [Lipitor] 20 mg PO HS 12/03/17 Chlorthalidone 25 mg PO ASDIR 12/03/17 Folic Acid 1 mg PO DAILY 12/03/17 Gabapentin [Neurontin] 300 mg PO TID 12/03/17 Hydroxychloroquine Sulfate 200 mg PO BID 12/03/17 [Plaquenil] Metoprolol Tartrate [Lopressor] 100 mg PO BID 12/03/17 Oxycodone HCl 10 mg PO PRN 12/03/17 Prasugrel HCl [Effient] 5 mg PO ASDIR 12/03/17 Sulfasalazine [Azulfidine] 1,500 mg PO BID 12/03/17 pe: Vital Signs Period Temp Pulse Resp BP Sys/[place] Pulse Ox Last 24 Hr 97.2 F-98.2 F 81-104 16-18 137-176/66-102 96-98 nad no jvd rrr s1s2 no mrg cta bl nl eff aaox3 trace le edema bl, no c/c abd nt nd pos bs no jaundice diaphoresis pos dp pt no carotid bruits Laboratory Last Values WBC 6.7 K/mm3 (4.0-10.0) 12/04/17 05:30 RBC 3.88 M/mm3 (4.00-5.60) L 12/04/17 05:30 Hgb 12.6 GM/dL (11.7-16.9) 12/04/17 05:30 Hct 36.9 % (35.4-49) 12/04/17 05:30 MCV 95.1 fl (80-96) 12/04/17 05:30 MCH 32.4 pg (25.7-33.7) 12/04/17 05:30 MCHC 34.0 g/dl (32.0-35.9) 12/04/17 05:30 RDW 13.5 % (11.9-15.9) 12/04/17 05:30 Plt Count 166 K/MM3 (134-434) 12/04/17 05:30 MPV 8.6 fl (7.5-11.1) 12/04/17 05:30 Absolute Neuts (auto) 3.7 # 12/04/17 05:30 Neutrophils % 55.7 % (42.8-82.8) D 12/04/17 05:30 Lymphocytes % 28.8 % (8-40) D 12/04/17 05:30 Monocytes % 9.1 % (3.8-10.2) 12/04/17 05:30 Eosinophils % 4.6 % (0-4.5) H 12/04/17 05:30 Basophils % 1.8 % (0-2.0) 12/04/17 05:30 Nucleated RBC % 0 % (0-0) 12/04/17 05:30 PT with INR 11.50 SEC (9.7-13.0) 12/03/17 19:45 INR 1.02 (0.83-1.09) 12/03/17 19:45 PTT (Actin FS) 31.0 SECONDS (25.2-36.5) 12/03/17 19:45 Sodium 140 mmol/L (136-145) 12/04/17 05:30 Potassium 4.5 mmol/L (3.5-5.1) 12/04/17 05:30 Chloride 101 mmol/L (98-107) 12/04/17 05:30 Carbon Dioxide 31 mmol/L (21-32) 12/04/17 05:30 Anion Gap 8 (8-16) 12/04/17 05:30 BUN 18 mg/dL (7-18) 12/04/17 05:30 Creatinine 1.2 mg/dL (0.7-1.3) 12/04/17 05:30 Creat Clearance w eGFR 59.18 (>60) 12/04/17 05:30 Random Glucose 95 mg/dL (74-106) 12/04/17 05:30 Calcium 9.8 mg/dL (8.5-10.1) 12/04/17 05:30 Phosphorus 4.0 mg/dL (2.5-4.9) D 12/04/17 05:30 Magnesium 1.9 mg/dL (1.8-2.4) 12/04/17 05:30 Total Bilirubin 0.4 mg/dL (0.2-1.0) 12/03/17 17:17 AST 29 U/L (15-37) 12/03/17 17:17 ALT 35 U/L (12-78) D 12/03/17 17:17 Alkaline Phosphatase 87 U/L (45-117) 12/03/17 17:17 Creatine Kinase 209 IU/L (39-308) 12/04/17 05:30 Creatine Kinase Index 1.2 % (0.0-5.0) 12/04/17 05:30 CK-MB (CK-2) 2.56 ng/mL (0.5-3.6) 12/04/17 05:30 Troponin I < 0.02 ng/ml (0.00-0.05) 12/04/17 05:30 B-Natriuretic Peptide 676.26 pg/ml (5-125) H 12/03/17 17:17 Total Protein 7.1 g/dl (6.4-8.2) 12/03/17 17:17 Albumin 3.9 g/dl (3.4-5.0) 12/03/17 17:17 Urine Color Yellow 12/03/17 19:41 Urine Appearance Clear 12/03/17 19:41 Urine pH 5.0 (5.0-8.0) 12/03/17 19:41 Ur Specific [place] 1.013 (1.001-1.035) 12/03/17 19:41 Urine Protein Negative (NEGATIVE) 12/03/17 19:41 Urine Glucose (UA) Negative (NEGATIVE) 12/03/17 19:41 Urine Ketones Negative (NEGATIVE) 08/02/18 19:41 Urine Blood Negative (NEGATIVE) 12/03/17 19:41 Urine Nitrite Negative (NEGATIVE) 12/03/17 19:41 Urine Bilirubin Negative (<2.0 mg/dL) 12/03/17 19:41 Urine Urobilinogen Negative mg/dL (0.2-1.0) 12/03/17 19:41 Ur Leukocyte Esterase Negative (NEGATIVE) 12/03/17 19:41 cxr: clear lungs ecg: sr, nl intervals, old inf/lat qs, no st changes tele: sr a/p: 72 m hx htn, cad s/p mi/remote cabg/pci 2013, hld, venous insuff/le edema here with elevated bp/sob/headache. htn, sob: -pt with mild pulm edema in setting of high bp (likely triggered by high salt intake) -bp improved and sob resolved now -echo pending -monitor bp -no signs acs -likely ok for dc tomorrow cad, cabg, pci: -no signs acs -pt reports recent normal nuclear stress test at his cardio earlier this week, will request results -no anginal sxs -cont bb, statin, dapt (no recent pci, but will continue as this is what his outside cardio has him on) hld: -cont statin venous insuff/le edema: -continue chlorthalidone
--- NOTE | 2017-12-04 12:50 | ECHO ---
Name: ADAM BELCHER Exam:Adult Echocardiogram Study Date: 12/04/2017 07:44 AM Age: 72 yrs Reason For Study: SOB Height: 66 in Weight: 197 lb BSA: 2.0 m2 MMode/2D Measurements & Calculations IVSd: 1.3 cm Ao root diam: 2.8 cm LVIDd: 4.1 cm LA dimension: 3.4 cm LVIDs: 2.7 cm LVPWd: 1.2 cm EDV(Teich): 73.8 ml ESV(Teich): 26.6 ml Doppler Measurements & Calculations MV E max vinny: 50.9 cm/sec Med Peak E' Vinny: 6.4 cm/sec MV A max vinny: 79.5 cm/sec Med E/e': 7.9 MV E/A: 0.64 Lat Peak E' Vinny: 8.6 cm/sec MV dec time: 0.15 sec Lat E/e': 5.9 Procedure The study was technically limited with all images being suboptimal in quality. Left Ventricle The left ventricle is normal in size. There is mild concentric left ventricular hypertrophy. Left nguyen tricular systolic function is grossly normal. Septal motion is consistent with post-operative state. There is mild inferior wall hypokinesis. Right Ventricle The right ventricle is normal in size and function. Atria Normal left and right atrial size and function. Mitral Valve There is mild mitral annular calcification. The mitral valve is grossly normal. There is trace mitral regurgitation. Tricuspid Valve The tricuspid valve is not well visualized. There is trace tricuspid regurgitation. There was insuffi cient TR detected to calculate RV systolic pressure. Aortic Valve The aortic valve opens well. The aortic valve is trileaflet. No aortic regurgitation is present. Pulmonic Valve The pulmonic valve is not well visualized. Great Vessels The aortic root is normal size. Pericardium/Pleura There is no pericardial effusion. Interpretation Summary There is no comparison study available. The left ventricle is normal in size. There is mild concentric left ventricular hypertrophy. Left ventricular systolic function is grossly normal. Septal motion is consistent with post-operative state. There is mild inferior wall hypokinesis. There is trace mitral regurgitation. There is trace tricuspid regurgitation. Iron Eaton MD 12/04/2017 12:50 PM
--- NOTE | 2017-12-04 16:52 | PN ---
Progress Note, Physician Chief Complaint: Pt sitting in chair in no acute distress. reports he feels better. no symptoms of chest pain, sob, n/v/d. reports he felt lightheaded/pressure last night at home, bp checked and was in 200s per pt. - Current Medication List Current Medications: Active Medications Amlodipine Besylate (Norvasc -) 5 mg PO DAILY [facility] Last Admin: 12/04/17 09:45 Dose: 5 mg Aspirin (Asa -) 81 mg PO DAILY [facility] Last Admin: 12/04/17 09:43 Dose: 81 mg Atorvastatin Calcium (Lipitor -) 20 mg PO [facility] Chlorthalidone (Hygroton -) 25 mg PO Q2D@1000 [facility] Last Admin: 12/04/17 09:44 Dose: 25 mg Chlorthalidone (Hygroton -) 50 mg PO Q2D@1000 [facility] Folic Acid (Folic Acid -) 1 mg PO DAILY [facility] Last Admin: 12/04/17 09:44 Dose: 1 mg Gabapentin (Neurontin -) 300 mg PO TID [facility] Last Admin: 12/04/17 13:38 Dose: 300 mg Hydroxychloroquine Sulfate (Plaquenil -) 200 mg PO BID [facility] Last Admin: 12/04/17 09:44 Dose: 200 mg Metoprolol Tartrate (Lopressor -) 100 mg PO BID [facility] Last Admin: 12/04/17 09:45 Dose: 100 mg Oxycodone HCl (Roxicodone -) 10 mg PO Q6H PRN PRN Reason: PAIN LEVEL 4 - 6 Last Admin: 12/04/17 05:36 Dose: 10 mg Prasugrel (Effient -) 5 mg PO MoWeFr@1000 [facility] Last Admin: 12/04/17 09:45 Dose: 5 mg Sulfasalazine (Azulfidine -) 1,500 mg PO BID [facility] Last Admin: 12/04/17 09:45 Dose: 1,500 mg - Objective Vital Signs: Vital Signs Temperature 97.8 F 12/04/17 14:00 Pulse Rate 79 12/04/17 14:00 Respiratory Rate 20 12/04/17 16:00 Blood Pressure 144/88 12/04/17 14:00 O2 Sat by Pulse Oximetry (%) 98 12/04/17 16:00 Constitutional: Yes: Well Nourished, No Distress, Calm Cardiovascular: Yes: WNL, Regular Rate and Rhythm. No: Murmur Respiratory: Yes: WNL, Regular, CTA Bilaterally Gastrointestinal: Yes: WNL, Normal Bowel Sounds, Soft. No: Distention, Tenderness Genitourinary: Yes: WNL Extremities: Yes: WNL Edema: Yes Edema: LLE: 1+, RLE: 1+ Neurological: Yes: WNL, Alert, Oriented Psychiatric: Yes: WNL, Alert, Oriented Labs: CBC, BMP 12/04/17 05:30 12/04/17 05:30 INR, PTT INR 1.02 (0.83-1.09) 12/03/17 19:45 Problem List - Problems (1) Hypertension Code(s): I10 - ESSENTIAL (PRIMARY) HYPERTENSION Qualifiers: Hypertension type: unspecified Qualified Code(s): I10 - Essential (primary ) hypertension (2) S/P CABG (coronary artery bypass graft) Code(s): Z95.1 - PRESENCE OF AORTOCORONARY BYPASS GRAFT (3) CAD (coronary artery disease) Code(s): I25.10 - ATHSCL HEART DISEASE OF [place] CORONARY ARTERY W/O ANG PCTRS Qualifiers: [place] vs. transplanted heart: [place] heart Associated angina: without angina (4) Venous insufficiency (chronic) (peripheral) Code(s): I87.2 - VENOUS INSUFFICIENCY (CHRONIC) (PERIPHERAL) Assessment/Plan 1. hypertensive episode w/ lightheadedness/sob/head pressure : suspect acute on chronic htn due to increased salt in diet - bp controlled, asymptomatic -echo pending 2.cad, cabg, pci: -no signs acs, tropx3 neg -recent nuclear stress test with telecommunications sales representative unremarkable -continue current management 3. venous insuff/le edema: - received lasix iv here for le edema, improved - dvt r/out -continue chlorthalidone - pt followed by nephrology/cardiology outpt Dispo: discharge tomorrow, pending echo read
[2017-12-04] MEDS: RANITIDINE HCL 150 MG TABLET (FP) PO SCH (21:15)
[2017-12-04] MEDS ORDERED: ATORVASTATIN CA 20 MG TABLET (FP) PO SCH (22:00)
[2017-12-05] MEDS: GABAPENTIN 300 MG CAPSULE (FP) PO SCH ×2 (06:05→14:07)
--- NOTE | 2017-12-05 09:15 | EKG ---
Test Reason : Blood Pressure : / mmHG Vent. Rate : 084 BPM Atrial Rate : 084 BPM P-R Int : 170 ms QRS Dur : 090 ms QT Int : 384 ms P-R-T Axes : 056 016 048 degrees QTc Int : 453 ms NORMAL SINUS RHYTHM MINIMAL VOLTAGE CRITERIA FOR LVH, MAY BE NORMAL VARIANT INFERIOR INFARCT (CITED ON OR BEFORE 20-OCT-2003) ABNORMAL ECG WHEN COMPARED WITH ECG OF 27-DEC-2015 19:56, VENT. RATE HAS INCREASED BY 33 BPM Confirmed by ANIL TORRES, LISA ([id number]) on 12/05/2017 9:14:48 AM Referred By: Confirmed By:LISA MA MD
[2017-12-05] MEDS ORDERED: CHLORTHALIDONE 25 MG TABLET PO SCH (10:00)
[2017-12-05] MEDS: FOLIC ACID 1 MG TABLET (FP) PO SCH (10:44)
[2017-12-05] MEDS: METOPROLOL TARTRATE 50 MG TABLET (FP) PO SCH (10:44)
[2017-12-05] MEDS: RANITIDINE HCL 150 MG TABLET (FP) PO SCH (10:44)
[2017-12-05] MEDS: ASPIRIN 81 MG CHEWABLE TABLETS PO SCH (10:44)
[2017-12-05] MEDS: amLODIPine BESYLATE 5 MG TABLET (FP) PO SCH (10:44)
[2017-12-05] MEDS: sulfaSALAzine 500 MG TABLET PO SCH (10:45)
[2017-12-05] MEDS: HYDROXYCHLOROQUINE SO4 200 MG TABLET (FP) PO SCH (10:45)
--- NOTE | 2017-12-05 11:43 | PN ---
Progress Note, Physician History of Present Illness: No complaints overnight Tele: NSR at 80s - Current Medication List Current Medications: Active Medications Amlodipine Besylate (Norvasc -) 5 mg PO DAILY [facility] Last Admin: 12/05/17 10:44 Dose: 5 mg Aspirin (Asa -) 81 mg PO DAILY [facility] Last Admin: 12/05/17 10:44 Dose: 81 mg Atorvastatin Calcium (Lipitor -) 20 mg PO HS [facility] Last Admin: 12/04/17 21:15 Dose: 20 mg Chlorthalidone (Hygroton -) 25 mg PO Q2D@1000 [facility] Last Admin: 12/04/17 09:44 Dose: 25 mg Chlorthalidone (Hygroton -) 50 mg PO Q2D@1000 [facility] Last Admin: 12/05/17 10:45 Dose: 50 mg Folic Acid (Folic Acid -) 1 mg PO DAILY [facility] Last Admin: 12/05/17 10:44 Dose: 1 mg Gabapentin (Neurontin -) 300 mg PO TID [facility] Last Admin: 12/05/17 06:05 Dose: 300 mg Hydroxychloroquine Sulfate (Plaquenil -) 200 mg PO BID [facility] Last Admin: 12/05/17 10:45 Dose: 200 mg Metoprolol Tartrate (Lopressor -) 100 mg PO BID [facility] Last Admin: 12/05/17 10:44 Dose: 100 mg Oxycodone HCl (Roxicodone -) 10 mg PO Q6H PRN PRN Reason: PAIN LEVEL 4 - 6 Last Admin: 12/04/17 22:08 Dose: 10 mg Prasugrel (Effient -) 5 mg PO MoWeFr@1000 [facility] Last Admin: 12/04/17 09:45 Dose: 5 mg Ranitidine HCl (Zantac -) 150 mg PO BID [facility] Last Admin: 12/05/17 10:44 Dose: 150 mg Sulfasalazine (Azulfidine -) 1,500 mg PO BID [facility] Last Admin: 12/05/17 10:45 Dose: 1,500 mg - Objective Vital Signs: Vital Signs Temperature 98.5 F 12/05/17 05:00 Pulse Rate 73 12/05/17 05:00 Respiratory Rate 18 12/05/17 05:00 Blood Pressure 142/88 12/05/17 05:00 O2 Sat by Pulse Oximetry (%) 98 12/04/17 22:00 Constitutional: Yes: Well Nourished, No Distress Eyes: Yes: WNL HENT: Yes: WNL Neck: Yes: WNL Cardiovascular: Yes: Regular Rate and Rhythm Respiratory: Yes: CTA Bilaterally Gastrointestinal: Yes: Normal Bowel Sounds Extremities: Yes: WNL Edema: No Labs: CBC, BMP 12/04/17 05:30 12/04/17 05:30 INR, PTT INR 1.02 (0.83-1.09) 12/03/17 19:45 Assessment/Plan a/p: 72 m hx htn, cad s/p mi/remote cabg/pci 2013, hld, venous insuff/le edema here with elevated bp/sob/headache. htn, sob: -pt with mild pulm edema in setting of high bp (likely triggered by high salt intake) -bp improved and sob resolved now -echo reprot reviewed with Normal LV size and grossly normal LV function, mild inferior hypocontractility, trace MR. -BP imp[roved 142/88 now -no signs acs -OK for d/c today on outpatient BP regimen and follow up with Dr. Kenyon in [facility] cad, cabg, pci: -no signs acs -no anginal sxs -cont bb, statin, dapt (no recent pci, but will continue as this is what his outside cardio has him on) -nuclear stress test 11/30/17: inferior scarring. inferoseptal scarring with mild-mod kayleigh-infarct ischemia. -Low risk findings, continue with med rx and outpt cardio f/u. hld: -cont statin venous insuff/le edema: -continue chlorthalidone -RLE duplex with no DVT
[2017-12-05 12:40] VITALS: BP 146/85; PULSE 92; TEMP 98.4
--- NOTE | 2017-12-05 13:50 | DS ---
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 He also reports his B/L LE edema is increased from baseling. 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 [facility], admits to be non complint with salt intake, patiwent gradually inproved, cleared to discharge by cardiology consult Condition: Improved - Instructions Diet, Activity, Other Instructions: Low Salt low cholesterol Please Check BMP on Thursday Referrals: Tashi Dutta MD [Primary Care Provider] - 1 Week Disposition: HOME - Home Medications Comprehensive Discharge Medication List: Ambulatory Orders Amlodipine Besylate [Norvasc -] 5 mg PO DAILY 12/03/17 Aspirin 81 mg PO DAILY 12/03/17 Atorvastatin Ca [Lipitor] 20 mg PO HS 12/03/17 Chlorthalidone 25 mg PO ASDIR 12/03/17 Folic Acid 1 mg PO DAILY 12/03/17 Gabapentin [Neurontin] 300 mg PO TID 12/03/17 Hydroxychloroquine Sulfate [Plaquenil] 200 mg PO BID 12/03/17 Metoprolol Tartrate [Lopressor] 100 mg PO BID 12/03/17 Oxycodone HCl 10 mg PO PRN 12/03/17 Prasugrel HCl [Effient] 5 mg PO ASDIR 12/03/17 Sulfasalazine [Azulfidine -] 1,500 mg PO BID 12/03/17 Lasix 40 mg daily am for 7 days
[2017-12-06] MEDS ORDERED: FUROSEMIDE 40 MG TABLET (FP) PO SCH (10:00)
== END 2017-12-05 15:31 | disposition home or self-care (01) ==
LOC: JER 16:51 → JERBED 20:01 → J4W 23:14
PROVIDERS: ADMIT Internal Medicine; ATTEND Internal Medicine
PROC: 3E033GC Introduction of Other Therapeutic Substance into Peripheral Vein, Percutaneous Approach (ICD-10-PCS; principal; 2017-12-03)
DX: I10 Essential (primary) hypertension (principal); R06.02 Shortness of breath; E78.5 Hyperlipidemia, unspecified; I25.10 Atherosclerotic heart disease of native coronary artery without angina pectoris; I25.2 Old myocardial infarction; M48.00 Spinal stenosis, site unspecified; M06.80 Other specified rheumatoid arthritis, unspecified site; K90.0 Celiac disease; L13.0 Dermatitis herpetiformis; K21.9 Gastro-esophageal reflux disease without esophagitis; I73.9 Peripheral vascular disease, unspecified; R60.0 Localized edema; I87.2 Venous insufficiency (chronic) (peripheral); Z87.891 Personal history of nicotine dependence; Z79.82 Long term (current) use of aspirin; Z95.5 Presence of coronary angioplasty implant and graft; Z95.1 Presence of aortocoronary bypass graft
CPT/HCPCS: 36415; 71045-TC-FY; 80048; 80053; 81003; 82550; 82553; 83735; 83880; 84100; 84484; 85025; 85379; 85610; 85730; 93005; 93010; 93306-TC; 93971-TC; 96374; 96376; 99285-25; G0378

== ENCOUNTER 2023-09-08 13:51 | Observation (INO) | payer OTHER, MEDICARE ==
[2023-09-08 14:32] VITALS: BMI 24.5
[2023-09-08 15:05] LABS: BASO % 2.8 % (0-2.0); EOS % 6.7 % (0-4.5); HEMOGLOBIN 8.9 GM/dL (11.7-16.9); LYMPH % 24.4 % (8-40); MCH 31.6 pg (25.7-33.7); MEAN CELL VOLUME 95.6 fl (80-96); MEAN PLT VOLUME 8.1 fl (7.5-11.1); MONO % 6.6 % (3.8-10.2); NEUT % 59.5 % (42.8-82.8); PLATELET COUNT 144 10^3/uL (134-434); RBC 2.82 M/mm3 (4.00-5.60); RDW 15.8 % (11.9-15.9); WHITE BLOOD COUNT 4.7 K/mm3 (4.0-10.0)
[2023-09-08 15:13] LABS: INR 0.98 (0.83-1.09); PROTHROMBIN TIME (PATIENT) 11.1 SEC (9.7-13.0)
[2023-09-08 15:16] LABS: ACTIVATED PTT 33.7 SECONDS (25.2-36.5)
[2023-09-08] MEDS: SODIUM CHLORIDE 1,000 ML IV SCH (15:19)
[2023-09-08 15:27] LABS: POTASSIUM 4.2 mmol/L (3.5-5.1)
[2023-09-08 15:30] LABS: ALBUMIN 2.9 g/dl (3.4-5.0); CALCIUM 8.4 mg/dL (8.5-10.1)
[2023-09-08 15:31] LABS: BLOOD UREA NITROGEN 13.7 mg/dL (7-18)
[2023-09-08 15:34] LABS: CREATININE 1.2 mg/dL (0.55-1.3)
[2023-09-08 15:35] LABS: BILIRUBIN,TOTAL 0.4 mg/dL (0.2-1)
[2023-09-08 15:40] LABS: EPI CELLS 1 /uL (0-25.1); HYALINE CASTS 0 /uL (0-3.1); PH,URINE 5.5 (5.0-8.0); URINE APPEARANCE CLEAR; URINE BACTERIA 11 /uL (0-1359); URINE BILIRUBIN NEGATIVE (NEGATIVE); URINE COLOR DK YELLOW; URINE GLUCOSE (UA) NEGATIVE (NEGATIVE); URINE KETONE NEGATIVE (NEGATIVE); URINE LEUK ESTERASE NEGATIVE (NEGATIVE); URINE NITRITE NEGATIVE (NEGATIVE); URINE PROTEIN 2+ (NEGATIVE); URINE RBC 3 /uL (0-23.9); URINE UROBILINOGEN 0.2 mg/dL (0.2-1.0); URINE WBC 1 /uL (0-25.8)
[2023-09-08] MEDS: cloNIDine HCL 0.1 MG TABLET PO SCH (21:43)
[2023-09-08] MEDS: METOPROLOL TARTRATE 50 MG TABLET (FP) PO SCH (21:43)
[2023-09-08] MEDS: ATORVASTATIN CA 20 MG TABLET (FP) PO SCH (21:43)
[2023-09-08] MEDS ORDERED: PATIENT'S OWN MEDICATION (NON-FORMULARY) (Clonidine Hcl [Clonidine Hcl] 0.2 MG Tablet) PO SCH (22:00)
[2023-09-09] MEDS: ACETAMINOPHEN 325 MG TABLET (FP) PO ONE (08:08)
[2023-09-09] MEDS: ASPIRIN 81 MG CHEWABLE TABLETS PO SCH (09:45)
[2023-09-09] MEDS: FAMOTIDINE 20 MG TABLET PO SCH (09:45)
[2023-09-09] MEDS: amLODIPine BESYLATE 5 MG TABLET (FP) PO SCH (09:47)
[2023-09-09] MEDS: LOSARTAN POTASSIUM 50 MG TABLET PO SCH (09:48)
[2023-09-09] MEDS: FUROSEMIDE 40 MG TABLET (FP) PO SCH (09:48)
[2023-09-09] MEDS ORDERED: PATIENT'S OWN MEDICATION (NON-FORMULARY) (Losartan Potassium [Cozaar] 100 MG Tablet) PO SCH (10:00)
[2023-09-09] MEDS: PRASUGREL HCL 5 MG TAB PO SCH (11:12)
[2023-09-09] MEDS: amLODIPine BESYLATE 5 MG TABLET (FP) PO ONE (11:44)
[2023-09-09 13:25] VITALS: BP 138/69; PULSE 57; RESP 18; TEMP 97.1
[2023-09-09] MEDS: MECLIZINE HCL 12.5 MG TABLET PO ONE (13:36)
[2023-09-10] MEDS ORDERED: amLODIPine BESYLATE 5 MG TABLET (FP) PO SCH ×2 (10:00)
== END 2023-09-09 16:00 | disposition home health service (06) ==
LOC: JER 13:51 → JERBED 19:10 → J4W 20:40
PROVIDERS: ADMIT Internal Medicine; ATTEND Internal Medicine
PROC: 3E0337Z Introduction of Electrolytic and Water Balance Substance into Peripheral Vein, Percutaneous Approach (ICD-10-PCS; principal; 2023-09-08)
DX: R42 Dizziness and giddiness (principal); G45.0 Vertebro-basilar artery syndrome; I25.10 Atherosclerotic heart disease of native coronary artery without angina pectoris; I10 Essential (primary) hypertension; E78.5 Hyperlipidemia, unspecified; I25.2 Old myocardial infarction; Z95.1 Presence of aortocoronary bypass graft; M06.9 Rheumatoid arthritis, unspecified; D46.9 Myelodysplastic syndrome, unspecified; D64.9 Anemia, unspecified
CPT/HCPCS: 36415; 70450-TC; 70551-TC; 71045-TC-FY; 80053; 80061; 81003; 82550; 83036; 84484; 85025; 85610; 85730; 86850; 86900; 86901; 93005; 93010; 97116-GP; 97161-GP; 99285-25; G0378

== ENCOUNTER 2024-03-24 19:26 | Inpatient (IN) | payer OTHER, MEDICARE ==
[2024-03-24 20:00] VITALS: BMI 24.7
[2024-03-24] MEDS ORDERED: ALBUTEROL SO4 2.5/IPRATROPIUM 0.5 INH SOL 3 ML VIAL.NEB. NEB ONE (20:22)
[2024-03-24 20:23] LABS: VENOUS O2 SATURATION 16.2 % (70-80); VENOUS PH 7.333 (7.310-7.410)
[2024-03-24] MEDS ORDERED: methylPREDNISolone NA SUCC 125 MG/2 ML VIAL ONE (20:23)
[2024-03-24 20:26] LABS: BASO % 1.3 % (0-2.0); EOS % 0.3 % (0-4.5); HEMATOCRIT 37.4 % (35.4-49); HEMOGLOBIN 11.8 GM/dL (11.7-16.9); LYMPH % 22.2 % (8-40); MCH 27.9 pg (25.7-33.7); MCHC 31.5 g/dl (32.0-35.9); MEAN CELL VOLUME 88.7 fl (80-96); MEAN PLT VOLUME 7.3 fl (7.5-11.1); MONO % 8.3 % (3.8-10.2); NEUT % 67.9 % (42.8-82.8); PLATELET COUNT 179 10^3/uL (134-434); RBC 4.21 M/mm3 (4.00-5.60); RDW 21.3 % (11.9-15.9); WHITE BLOOD COUNT 4.3 K/mm3 (4.0-10.0)
[2024-03-24 20:41] LABS: INR 1.28 (0.83-1.09); PROTHROMBIN TIME (PATIENT) 14.4 SEC (9.7-13.0)
[2024-03-24 20:44] LABS: ACTIVATED PTT 46.5 SECONDS (25.2-36.5)
[2024-03-24] MEDS: methylPREDNISolone NA SUCC 125 MG/2 ML VIAL IVPUSH ONE (20:46)
[2024-03-24] MEDS: ALBUTEROL SO4 2.5/IPRATROPIUM 0.5 INH SOL 3 ML VIAL.NEB. NEB SCH (20:46)
[2024-03-24 20:57] LABS: POTASSIUM 4.3 mmol/L (3.5-5.1)
[2024-03-24 21:00] LABS: ALBUMIN 2.4 g/dl (3.4-5.0); BLOOD UREA NITROGEN 25.3 mg/dL (7-18); CALCIUM 8.7 mg/dL (8.5-10.1)
[2024-03-24 21:04] LABS: CREATININE 1.5 mg/dL (0.55-1.3)
[2024-03-24 21:05] LABS: BILIRUBIN,TOTAL 0.4 mg/dL (0.2-1); TOT PROT 5.6 g/dl (6.4-8.2)
[2024-03-24] MEDS ORDERED: REMDESIVIR 200 MG in SODIUM CHLORIDE 250 ML IVPB ONE (21:09)
[2024-03-24] MEDS ORDERED: DEXAMETHASONE SOD PHOSPHATE 10 MG/1 ML VIAL ONE (21:18)
[2024-03-24] MEDS ORDERED: FUROSEMIDE 40 MG/4 ML INJECTABLE VIAL ONE (21:19)
[2024-03-24] MEDS: DEXAMETHASONE SOD PHOSPHATE 10 MG/1 ML VIAL IVPUSH ONE (21:52)
[2024-03-24] MEDS: FUROSEMIDE 40 MG/4 ML INJECTABLE VIAL IVPUSH ONE (21:52)
[2024-03-24 22:21] LABS: ANISOCYTOSIS 1+; MACROCYTOSIS 1+
[2024-03-25] MEDS ORDERED: BENZOCAINE/MENTH/CETYLPYRD CL 1 EACH LOZENGE MM PRN (03:36)
[2024-03-25] MEDS: HEPARIN NA (PORCINE) 5,000 UNITS/ML 1ML VIAL SQ SCH (06:33)
[2024-03-25] MEDS: METOPROLOL TARTRATE 50 MG TABLET (FP) PO ONE (06:34)
[2024-03-25] MEDS: GABAPENTIN 300 MG CAPSULE PO SCH (06:34)
[2024-03-25] MEDS: GABAPENTIN 300 MG CAPSULE PO ONE (06:54)
[2024-03-25 07:14] LABS: BASO % 0.3 % (0-2.0); HEMOGLOBIN 11.9 GM/dL (11.7-16.9); LYMPH % 11.9 % (8-40); MCHC 31.3 g/dl (32.0-35.9); MEAN CELL VOLUME 89.4 fl (80-96); MEAN PLT VOLUME 7.6 fl (7.5-11.1); MONO % 2.7 % (3.8-10.2); NEUT % 85.1 % (42.8-82.8); PLATELET COUNT 197 10^3/uL (134-434); RBC 4.25 M/mm3 (4.00-5.60); RDW 21.3 % (11.9-15.9); WHITE BLOOD COUNT 4.7 K/mm3 (4.0-10.0)
[2024-03-25 07:25] LABS: POTASSIUM 4.6 mmol/L (3.5-5.1)
[2024-03-25 07:38] LABS: CALCIUM 8.6 mg/dL (8.5-10.1)
[2024-03-25 07:39] LABS: ALBUMIN 2.4 g/dl (3.4-5.0)
[2024-03-25 07:42] LABS: CREATININE 1.6 mg/dL (0.55-1.3); PHOSPHOROUS 3.4 mg/dL (2.5-4.9)
[2024-03-25 07:43] LABS: BILIRUBIN,TOTAL 0.4 mg/dL (0.2-1)
[2024-03-25 07:44] LABS: TOT PROT 5.8 g/dl (6.4-8.2)
[2024-03-25] MEDS: cloNIDine HCL 0.1 MG TABLET PO ONE (07:56)
[2024-03-25] MEDS: ATORVASTATIN CA 20 MG TABLET (FP) PO ONE (07:56)
[2024-03-25] MEDS ORDERED: cloNIDine HCL 0.1 MG TABLET PO SCH (10:00)
[2024-03-25] MEDS ORDERED: LOSARTAN POTASSIUM 50 MG TABLET PO SCH (10:00)
[2024-03-25] MEDS: FUROSEMIDE 40 MG TABLET (FP) PO SCH (11:03)
[2024-03-25] MEDS: ASPIRIN COATED 81 MG TABLET.EC PO SCH (11:03)
[2024-03-25] MEDS: PRASUGREL HCL 5 MG TAB PO SCH (11:03)
[2024-03-25] MEDS: MUPIROCIN 2% TOPICAL OINTMENT 22 GM TUBE TP SCH (11:03)
[2024-03-25] MEDS: REMDESIVIR 200 MG in SODIUM CHLORIDE 250 ML IVPB ONE (11:04)
[2024-03-25] MEDS: METOPROLOL TARTRATE 50 MG TABLET (FP) PO SCH (11:04)
[2024-03-25] MEDS: amLODIPine BESYLATE 5 MG TABLET (FP) PO SCH (11:04)
[2024-03-25] MEDS: cloNIDine HCL 0.1 MG TABLET PO SCH (11:04)
[2024-03-25] MEDS: LEFLUNOMIDE 10 MG TABLET PO SCH (12:44)
[2024-03-25] MEDS: ATORVASTATIN CA 20 MG TABLET (FP) PO SCH (21:53)
[2024-03-25] MEDS: FAMOTIDINE 20 MG TABLET PO SCH (21:53)
[2024-03-25] MEDS: DEXAMETHASONE SOD PHOSPHATE 10 MG/1 ML VIAL IVPUSH SCH (21:53)
[2024-03-25] MEDS ORDERED: ATORVASTATIN CA 20 MG TABLET (FP) PO SCH (22:00)
[2024-03-25] MEDS: ACETAMINOPHEN 500 MG TABLET (FP) PO ONE (23:03)
[2024-03-26 08:17] LABS: BASO % 0.4 % (0-2.0); HEMATOCRIT 33.8 % (35.4-49); HEMOGLOBIN 10.5 GM/dL (11.7-16.9); LYMPH % 27.4 % (8-40); MCH 27.8 pg (25.7-33.7); MEAN CELL VOLUME 89.7 fl (80-96); MEAN PLT VOLUME 7.9 fl (7.5-11.1); MONO % 6.4 % (3.8-10.2); NEUT % 65.8 % (42.8-82.8); PLATELET COUNT 176 10^3/uL (134-434); RBC 3.77 M/mm3 (4.00-5.60); RDW 20.6 % (11.9-15.9); WHITE BLOOD COUNT 3.6 K/mm3 (4.0-10.0)
[2024-03-26 08:51] LABS: CHLORIDE 107 mmol/L (98-107); SODIUM 142 mmol/L (136-145)
[2024-03-26 09:00] LABS: CALCIUM 7.9 mg/dL (8.5-10.1); GLUCOSE,RANDOM 101 mg/dL (74-106)
[2024-03-26 09:01] LABS: ANION GAP 6 mmol/L (4-13); BLOOD UREA NITROGEN 21.8 mg/dL (7-18); CO2 28 mmol/L (21-32)
[2024-03-26 09:02] LABS: BILIRUBIN,TOTAL 0.4 mg/dL (0.2-1)
[2024-03-26 09:03] LABS: PHOSPHOROUS 3.2 mg/dL (2.5-4.9); TOT PROT 4.8 g/dl (6.4-8.2)
[2024-03-26 09:04] LABS: ALK PHOS 139 U/L (45-117); SGOT/AST 22 U/L (15-37); SGPT/ALT < 6 U/L (13-61)
[2024-03-26] MEDS: REMDESIVIR 100 MG in SODIUM CHLORIDE 250 ML IVPB SCH (10:59)
[2024-03-26] MEDS: LOSARTAN POTASSIUM 50 MG TABLET PO ONE (13:24)
[2024-03-26] MEDS ORDERED: ACETAMINOPHEN 1000 MG/100 ML BAG IVPB PRN (14:37)
[2024-03-26] MEDS: amLODIPine BESYLATE 5 MG TABLET (FP) PO ONE (19:26)
[2024-03-26] MEDS: guaiFENesin 600 MG TABLET.ER (FP) PO PRN (21:26)
[2024-03-26] MEDS: ACETAMINOPHEN 325 MG TABLET (FP) PO PRN (21:27)
[2024-03-27 07:02] LABS: BASO % 0.7 % (0-2.0); EOS % 0.3 % (0-4.5); HEMATOCRIT 33.5 % (35.4-49); HEMOGLOBIN 10.5 GM/dL (11.7-16.9); LYMPH % 27.5 % (8-40); MCHC 31.3 g/dl (32.0-35.9); MEAN CELL VOLUME 89.7 fl (80-96); MEAN PLT VOLUME 7.4 fl (7.5-11.1); MONO % 7.7 % (3.8-10.2); NEUT % 63.8 % (42.8-82.8); PLATELET COUNT 162 10^3/uL (134-434); RBC 3.73 M/mm3 (4.00-5.60); RDW 20.2 % (11.9-15.9); WHITE BLOOD COUNT 4.1 K/mm3 (4.0-10.0)
[2024-03-27 07:19] LABS: POTASSIUM 3.4 mmol/L (3.5-5.1)
[2024-03-27 07:30] LABS: CALCIUM 7.9 mg/dL (8.5-10.1)
[2024-03-27 07:31] LABS: MAGNESIUM 1.9 mg/dL (1.8-2.4)
[2024-03-27 07:34] LABS: CREATININE 0.9 mg/dL (0.55-1.3)
[2024-03-27 07:35] LABS: BILIRUBIN,TOTAL 0.5 mg/dL (0.2-1); PHOSPHOROUS 1.4 mg/dL (2.5-4.9)
[2024-03-27 07:36] LABS: TOT PROT 4.7 g/dl (6.4-8.2)
[2024-03-27] MEDS: amLODIPine BESYLATE 5 MG TABLET (FP) PO SCH (10:32)
[2024-03-27] MEDS: LOSARTAN POTASSIUM 50 MG TABLET PO SCH (10:32)
[2024-03-27] MEDS: LEFLUNOMIDE 10 MG TABLET PO SCH (10:40)
[2024-03-27] MEDS: NAPH,MB-DB/K PH,MBDB POWDER PACKET PO ONE (18:31)
[2024-03-27] MEDS: ALBUTEROL SO4 2.5/IPRATROPIUM 0.5 INH SOL 3 ML VIAL.NEB. NEB SCH (20:22)
[2024-03-27] MEDS: BUDESONIDE/FORMETEROL FUMARATE 160/4.5 mcg INHALER IH SCH (22:02)
[2024-03-28 06:58] LABS: HEMATOCRIT 34.1 % (35.4-49); HEMOGLOBIN 10.5 GM/dL (11.7-16.9); MCH 27.9 pg (25.7-33.7); MCHC 30.8 g/dl (32.0-35.9); MEAN CELL VOLUME 90.7 fl (80-96); MEAN PLT VOLUME 8.1 fl (7.5-11.1); PLATELET COUNT 189 10^3/uL (134-434); RBC 3.76 M/mm3 (4.00-5.60); RDW 20.3 % (11.9-15.9); WHITE BLOOD COUNT 5.6 K/mm3 (4.0-10.0)
[2024-03-28 07:09] LABS: POTASSIUM 3.6 mmol/L (3.5-5.1)
[2024-03-28 07:14] LABS: CALCIUM 7.9 mg/dL (8.5-10.1)
[2024-03-28 07:15] LABS: BLOOD UREA NITROGEN 22.8 mg/dL (7-18)
[2024-03-28 07:18] LABS: CREATININE 0.8 mg/dL (0.55-1.3); PHOSPHOROUS 1.7 mg/dL (2.5-4.9)
[2024-03-28 07:19] LABS: BILIRUBIN,TOTAL 0.5 mg/dL (0.2-1); TOT PROT 4.8 g/dl (6.4-8.2)
[2024-03-28] MEDS: ENOXAPARIN NA (PORCINE) 40 MG/0.4 ML DISP.SYRIN SQ SCH (11:23)
[2024-03-28 16:10] VITALS: PULSE 84
[2024-03-28 16:11] VITALS: BP 145/82; RESP 24; TEMP 98
== END 2024-03-28 15:32 | disposition home or self-care (01) | DRG 178 ==
LOC: JER 19:26 → JERBED 21:30 → J4W 03-25 00:17
PROVIDERS: ADMIT Student in an Organized Health Care Education/Training Program; ATTEND Student in an Organized Health Care Education/Training Program
PROC: XW033E5 Introduction of Remdesivir Anti-infective into Peripheral Vein, Percutaneous Approach, New Technology Group 5 (ICD-10-PCS; principal; 2024-03-24)
DX: U07.1 COVID-19 (principal); I13.0 Hypertensive heart and chronic kidney disease with heart failure and stage 1 through stage 4 chronic kidney disease, or unspecified chronic kidney disease; I25.10 Atherosclerotic heart disease of native coronary artery without angina pectoris; J44.9 Chronic obstructive pulmonary disease, unspecified; D64.9 Anemia, unspecified; E78.5 Hyperlipidemia, unspecified; N18.9 Chronic kidney disease, unspecified; I50.9 Heart failure, unspecified; M06.9 Rheumatoid arthritis, unspecified
CPT/HCPCS: 0241U-QW; 36415; 71045-TC-FY; 76604; 80053; 82803; 83735; 83880; 84100; 84484; 85025; 85027; 85610; 85730; 86850; 86900; 86901; 93005; 93010; 94640; 94761; 97116-GP; 97162-GP; 99285-25; J0248; J1100; J1644